=== PATIENT | male | born 1960 | race Caucasian/White ===

== ENCOUNTER 2016-11-14 07:08 | Emergency (ER) | payer OTHER ==
[2016-11-14] MEDS ORDERED: IBUPROFEN 200 MG TAB PO ONE (07:26)
--- NOTE | 2016-11-14 07:31 | UCPHY ---
H & P Time Seen by Provider: 11/14/16 07:26 Patient Type: New HPI/ROS: Was walking this morning when he inverted his left ankle and fell to the ground. He reports immediate ankle pain that is 3/10 at baseline worsens with weight-bearing or movement. Patient has associated moderate lateral swelling. He denies any other injuries. He has not taken any medication prior to arrival notes no other exacerbating or alleviating factors. ROS: He denies any other injuries. Musculoskeletal: No knee pain. No foot pain. Neuro: No numbness integumentary: No lacerations or abrasions. 5 point ROS is otherwise negative. Past Medical/Surgical History: o/w healthy Smoking Status: Never smoked Physical Exam: Physical Exam Vital signs are normal. General: No acute distress HEENT: Atraumatic. Eyes: Pupils equal and react to light. Extraocular motions are intact. Lungs: No respiratory distress. Cardiac: Brisk capillary refill is intact throughout. Pulses are 2+ and symmetric in the affected extremity. Skin: No rash or pallor. Extremities: Atraumatic and normal except for left ankle Left ankle: Patient has moderate lateral swelling and tenderness that includes the posterior aspect of the lateral malleolus. No Achilles or medial tenderness to the ankle. No foot tenderness to the 5th metatarsal or elsewhere. Neuro: Alert with no sensorimotor deficits on his extremity exam. Initial differential diagnosis: Ankle sprain versus fracture Constitutional: Initial Vital Signs Temperature (C) 36.6 C 11/14/16 07:31 Heart Rate 63 11/14/16 07:31 Respiratory Rate 18 11/14/16 07:31 Blood Pressure 155/92 H 11/14/16 07:31 O2 Sat (%) 94 11/14/16 07:31 O2 Delivery Mode Room Air Allergies/Adverse Reactions: No Known Allergies Allergy (Verified 11/14/16 07:29) Home Medications: Medication Instructions Recorded Fish Oil + Vitamin D-3 Softgel 11/14/16 Probiotic 11/14/16 Red Yeast Rice 11/14/16 Turmeric 11/14/16 MDM/Departure - MDM Diagnostics: Ankle [id number]: Negative for acute fracture with moderate lateral soft tissue swelling by my interpretation Medications Given: Discontinued Medications Ibuprofen (Motrin) 600 mg PO EDNOW ONE Stop: 11/14/16 07:27 Last Admin: 11/14/16 07:46 Dose: 600 mg ED Course/Re-evaluation: Patient is placed in a stirrup splint by our tech with my supervision. I counseled him regarding his diagnosis and ankle sprain rehab exercises. - Depart Disposition: Home, Routine, Self-Care Clinical Impression: Ankle sprain Qualifiers: Encounter type: initial encounter Involved ligament of ankle: unspecified ligament Laterality: left Qualifier Code: (S93.402A) Sprain of unspecified ligament of left ankle, initial encounter Condition: Good Instructions: Ankle Sprain (ED), Crutch Instructions (ED) Additional Instructions: Diagnosis: Ankle sprain Plan: Ibuprofen-400 600 mg per 6 hours as needed for pain and swelling. Ice 20 minutes at a time 3 times a day or more for the next few days. Stirrup splint whenever you're up and about until your symptoms resolve. Tylenol or Vicodin in addition if needed for pain. No driving alcohol or work on Vicodin. Use crutches initially until it no longer hurts to bear weight. Then start your ankle rehabilitation exercises to include "the alphabet", gentle ankle stretches in the 4 directions, and then manual resistance strengthening exercises in the 4 directions daily for the next several months. Call the orthopedic M.D. listed below to arrange a followup appointment if you' re not improving with the treatment plan over the next week or so. Referrals: NONE *PRIMARY CARE P,. [Primary Care Provider] - As per Instructions Solitario Kruger MD [Medical Doctor] - As per Instructions Melida Rodriguez MD [Medical Doctor] - As per Instructions - PQRS PQRS Measurement: NA
[2016-11-14 07:34] VITALS: BP 155/92; PULSE 63; RESP 18; TEMP 97.9; O2SAT 94
--- NOTE | 2016-11-14 08:02 | DX ---
Left Ankle, Three Views History: Pain, post trauma. Inversion injury. Findings: There is prominent lateral soft tissue swelling. There is an ankle joint effusion. No fract ure, arthritis or malalignment is identified. The talar dome looks normal. Impression: Ankle sprain.
== END 2016-11-14 08:08 | disposition home or self-care (01) ==
LOC: CED 07:08
DX: S93.402A Sprain of unspecified ligament of left ankle, initial encounter (principal); W19.XXXA Unspecified fall, initial encounter; Y99.8 Other external cause status
CPT/HCPCS: 73610-PO; G0463-PO; L4350